=== PATIENT | female | born 1975 | race Asian ===

== ENCOUNTER 2021-10-27 09:35 | Day surgery (SDC) | payer OTHER ==
[~2021-10-27] VITALS: Ht 157.5 cm; Wt 72.9 kg
[2021-10-27] VITALS (11 sets, daily range): BP systolic 95–147; BP diastolic 41–82; PULSE 80–112; TEMP 97.4–99.8
[2021-10-27] MEDS ORDERED: VITAMIN C (10:40)
[2021-10-27] MEDS ORDERED: VITAMIN D (10:41)
[2021-10-27] MEDS ORDERED: VITAMIN B12 (10:41)
[2021-10-27] MEDS ORDERED: AMOXICILLIN 8751 TAB PO (11:09)
[2021-10-27] MEDS ORDERED: NORCO 325 MG-51 TAB PO (11:09)
--- NOTE | 2021-10-27 14:39 | NUR ---
1439 IV MED GIVEN FOR CONTINUED INTERMITTENT NAUSEA. 1458 DENIES NAUSEA NOW. 1500 FOLLOWING ELIJAH REVIEW OF DISCHARGE INSTRUCTIONS. SITS ON EDGE OF CART. DRESSES SELF WITH STANDING BY.
--- NOTE | 2021-10-27 15:00 | NUR ---
1145 RETURNS TO ROOM 6 PER CART. PATIENT DROWSY, BUT AROUSES SPONTANEOUSLY. DENIES PAIN. VITAL SIGNS OBTAINED. REP CLEAR, SPONTANEOUS. ABD SOFT. INCISION X 3 SITES WITHOUT DRAINAGE. HOB ELEVATED 30 DEGREES. IN ROOM. CALL LIGHT WITHIN REACH. 1215 DOZES AT INTERVALS. CONTINUES TO DENY PAIN. 1245 PATIENT CONTINUES TO DOZE FOR INTERVALS. WHEN AWAKE, DOES TOLERATE PO WATER. 1330 LESS DROWSY. 1355 AMBULATES TO BATHROOM WITH STANDBY ASSIST. VOIDS WITHOUT DIFFICULTY. DOES EXPRESS PRESENCE OF SLIGHT NAUSEA IMMEDIATELY AFTER RETURNING TO CART. NO VOMITTING.
== END 2021-10-27 15:10 ==
LOC: SDCO 09:35
DX: K35.33 Acute appendicitis with perforation, localized peritonitis, and gangrene, with abscess (principal); K38.1 Appendicular concretions
CPT/HCPCS: J0330; J1100; J1885; J2250; J2405; J2704; J3010